=== PATIENT | female | born 1985 | race Caucasian/White ===

== ENCOUNTER → 2022-06-12 15:21 | Outpatient (CLI) | payer OTHER, SELFPAY ==
--- NOTE | 2022-06-12 | DI.US.S_ITS ---
PROCEDURE: US PELVIC COMPLETE INDICATIONS: CHRONIC PELVIC PAIN TECHNIQUE: Real-time scanning was performed of the pelvic organs, with image documentation. Additional endovaginal scanning was necessary due to incomplete visualization of the adnexal and endometrial structures by transabdominal scanning. COMPARISON: None. FINDINGS: Uterus: Uterus is anteverted and normal in size at 3.4 x 5.7 x 8.1 cm. The myometrium is homogeneous. The endometrium measures 6.5 mm combined thickness. Dom a Ovaries: The right ovary measures 2.7 x 1.8 x 3.4 cm, with a calculated ovarian volume of 8.6 cc. The left ovary measures 5.6 x 3.3 x 3.9 cm, with a calculated ovarian volume of 37.4 cc. The ovary on the right has a normal sonographic appearance. On the left there is a complex structure within the left ovary measuring 3.2 x 3.1 x 2.9 cm with increased peripheral vascularity, having a masslike appearance. Less than 12 follicles can be seen in each ovary. No adnexal masses are seen. Other: No pathologic free abdominal or pelvic fluid. IMPRESSION: Masslike appearance at the left ovary where a relatively sharply demarcated structure measuring up to 3.2 x 3.1 x 2.9 cm is present. This could represent a benign or malignant neoplasm and endometrioma also could produce this appearance. Normal right ovary and uterus. Dictated by: Frankie Sood M.D. on 06/12/2022 at 16:26 Approved by: Frankie Sood M.D. on 06/12/2022 at 16:29
== END ==
PROVIDERS: Referring Provider Nurse Practitioner Family; Visit Provider Nurse Practitioner Family
DX: R10.2 Pelvic and perineal pain (principal); N83.9 Noninflammatory disorder of ovary, fallopian tube and broad ligament, unspecified; G89.29 Other chronic pain
CPT/HCPCS: 76830; 76856; 93975

== ENCOUNTER 2022-09-25 08:32 | Day surgery (SDC) | payer OTHER, MEDICAID, SELFPAY ==
[2022-09-16 12:31] VITALS: BMI 24.6
[2022-09-25 08:48] VITALS: BP 109/80; PULSE 66; RESP 16; TEMP 36.6; BMI 24.6
[2022-09-25] MEDS: ACETAMINOPHEN 325 MG TABLET 975 MG PO (09:18)
[2022-09-25] MEDS: FAMOTIDINE 20 MG/2 ML VIAL IV (09:19)
--- NOTE | 2022-09-25 10:35 | PM.PREOP ---
Pre-operative Note COVID-19 COVID-19 status: Not tested Criteria for continued procedure: Non-surgical alternatives not available or appropriate per current SOC Interval Note History & Physical reviewed/Exam performed by Physician: Yes Changes to H&P: No
--- NOTE | 2022-09-25 11:30 | SUR.OPER ---
Lithotomy on padded OR bed, head on pillow, arms padded with gel pads and tucked at sides, Legs secured in padded yellow fins stirrups.
[2022-09-25] MEDS: BUPIVACAINE 0.5% (PF) 20 ML, EPINEPHrine 0.1 MG INJ (11:37)
--- NOTE | 2022-09-25 11:49 | PM.GYNOP.1 ---
Operative Date/Time/Diagnoses Date of procedure: 09/25/22 Time of procedure: 10:55 Pre-op diagnosis: Chronic pelvic pain Dysmenorrhea Left ovarian mass Post-op diagnosis: other (Same as above, large masters window, left hemipelvis) Procedure & Clinicians Procedure: Procedures Operation Date: 09/25/22 10:00 Actual Procedure Side Surgeon p Diagnostic Laparoscopy Steve Rachel MD Indications: Chitra is a 36-year-old 2 para 0 abortus 2 who presented in July 2022 for evaluation of or a long history of pelvic pain/dysmenorrhea, left lower quadrant pain, and a recently noted mass within the left ovary.? Patient experienced menarche at age 12 and has had painful periods ever since their onset.? She would miss days at school and Tylenol or Pamprin or ibuprofen would provide little or no relief.? At age 17 the patient was noted to have what was believed to be ovarian cysts and possibly endometriosis therefore was started on oral contraceptives.? Her pain became somewhat improved but she had severe mood changes in stopped them.? In addition she has migraines with aura as a contraindication her last normal menstrual period was 07/20/2022 and her periods are now regular after having been irregular earlier in her reproductive life.? Unfortunately she is having gradually worsening dysmenorrhea and many year history of deep dyspareunia.? Her dyspareunia is not so much at the time of intercourse but the 2 or 3 days afterwards.? Patient's last Pap is October 2021 and was normal.? She denies any intermenstrual bleeding or history of abnormal Paps.? Patient had a CA 125 performed by her primary care provider after discovering the left-sided ovarian mass and the CA 125 results was normal.? Recent pelvic ultrasound shows: PROCEDURE:? US PELVIC COMPLETE ? INDICATIONS:? CHRONIC PELVIC PAIN ? TECHNIQUE:? Real-time scanning was performed of the pelvic organs, with image documentation.? Additional endovaginal scanning was necessary due to incomplete visualization of the adnexal and endometrial structures by transabdominal scanning.? ? COMPARISON:? None. ? FINDINGS:? ?? Uterus:? Uterus is anteverted and normal in size at 3.4 x 5.7 x 8.1 cm. The myometrium is homogeneous. ? The endometrium measures 6.5 mm combined thickness.? Dom a ? Ovaries:? The right ovary measures 2.7 x 1.8 x 3.4 cm, with a calculated ovarian volume of 8.6 cc. The left ovary measures 5.6 x 3.3 x 3.9 cm, with a calculated ovarian volume of 37.4 cc. The ovary on the right has a normal sonographic appearance.? On the left there is a complex structure within the left ovary measuring 3.2 x 3.1 x 2.9 cm with increased peripheral vascularity, having a masslike appearance.? Less than 12 follicles can be seen in each ovary.? No adnexal masses are seen. ? Other:? No pathologic free abdominal or pelvic fluid. IMPRESSION:? Masslike appearance at the left ovary where a relatively sharply demarcated structure measuring up to 3.2 x 3.1 x 2.9 cm is present.? This could represent a benign or malignant neoplasm and endometrioma also could produce this appearance.? Normal right ovary and uterus. We had an extended discussion regarding potential causes for her symptoms and it would appear most likely that her constellation of symptoms is most likely due to pelvic endometriosis.? It also is possible that the mass seen in her ovary on the left is an endometrioma although she is had chronic left lower quadrant pain since the age of 11.? After discussing all options for further evaluation and/or management of her symptoms, patient wishes to proceed with diagnostic laparoscopy with the plan for excision/fulguration of endometrial implants if noted.? Attempts will be made to remove the mass from her left ovary but she understands that removal of the ovary may be necessary if resection of the mass is not feasible or bleeding develops during the course of its removal.? With full understanding of the above, the patient wishes to proceed in a case request was submitted for diagnostic laparoscopy with excision/fulguration of endometrial implants, left ovarian cystectomy, possible left oophorectomy.? She presents today for her scheduled surgery. ? ? Operative Notes Findings: The uterus is normal in size and mid plane. There are 2 subserosal myomas noted on the anterior surface of the uterine fundus. Both fallopian tubes appeared normal. The right ovary also appears to be normal and there was no evidence of endometriosis or scarring in the right ovarian fossa. The posterior cul-de-sac is free adhesions or endometriotic implants. There is a large, deep, masters window lateral to the uterosacral ligament on the left in the area the left ovarian fossa with likely deep endometrial implants at the base of the masters window. The left ureter was seen superior to the masters window but can not be visualized as it courses under the masters window and endometriotic implants. The left ovary itself is slightly larger than the right and contains a small cystic appearing mass within its substance which was left in-situ due to the need for additional surgery with robotic capability for excision of the large masters window on the left involving the left lateral sidewall, ureter, and hypogastric vessels. Closure Type: primary Specimen(s): none Applied: catheter Estimated blood loss (mL): 25 Blood products transfused: none Procedure in detail: With the patient under satisfactory general endotracheal anesthesia in the modified dorsal lithotomy position, the perineum, vagina, and abdomen were prepped and draped for laparoscopy. A pre-surgical safety time-out was then taken in accordance with [facility] OR protocols. A speculum was placed in the vagina, the anterior lip grasped with a single-tooth tenaculum, and a Zumi manipulator was placed in the uterus after dilation of the endocervical canal. The umbilicus was then infiltrated with 0.5% Marcaine with epinephrine and a 1 cm vertical incision was made in the skin of the inferior umbilicus. A Veress needle was used to insufflate the abdominal cavity with carbon dioxide and once insufflated a 5 mm trocar and sleeve were placed through the umbilical incision. Confirmation of correct placement into the abdominal cavity was confirmed by direct visualization. A 2nd and 3rd 5 mm laparoscopic port was placed in the right and left mid quadrants using a similar technique. The patient was placed in steep Trendelenburg and laparoscopic visualization of the pelvis and abdomen was carried out using a 3 puncture technique with the findings as noted above. Because of the size and depth of the masters window on the left side and it is apparent involvement with the left ureter and other underlying pelvic structures, resection of the masters window was felt to be best performed with robotic capabilities which are not available at this institution. The pelvis and structures therein were documented photographically and the diagnostic laparoscopy terminated by entering of the pneumoperitoneum and removal of the laparoscopy ports. Be laparoscopy port incisions were all closed with 4-0 Monocryl using inverted interrupted stitches and skin glue was applied. Appropriate dressings were applied the patient was awakened from anesthesia. She was then transferred to the PACU for a period of observation and recovery after having tolerated the procedure well. Arrangements will be made to assist in facilitating referral to a gynecologic surgeon with robotic capabilities to be able to resect the masters window in endometriosis that are present in the left hemipelvis. Complications: none Post-operative Condition: stable Disposition: PACU Plan for aftercare: Routine postop care with plans for referral to a center capable of robotic resection of masters window, left pelvic sidewall. Findings reviewed at length with the patient prior to her discharge and she understands both the reason why excision was not performed but standard laparoscopic techniques as well as the need for excision for relief pain she is been experiencing for at least the last 20 years.
[2022-09-25 11:55] VITALS: BP 118/70; PULSE 89; RESP 20; TEMP 36.1; O2SAT 99
[2022-09-25 12:01] VITALS: BP 121/71; PULSE 84; RESP 21; O2SAT 100
[2022-09-25 12:06] VITALS: BP 120/74; PULSE 82; RESP 20; O2SAT 100
[2022-09-25 12:22] VITALS: BP 130/83; PULSE 84; RESP 10; O2SAT 99
[2022-09-25 12:23] VITALS: BP 130/83; PULSE 81; RESP 12; O2SAT 100
--- NOTE | 2022-09-25 12:41 | SUR.PHASEII ---
upset surgery was not able to be completed as she had thought it would be. support provided, wants to get dressed and go home.
[2022-09-25] MEDS: OXYCODONE IR 5 MG TABLET PO (13:04)
== END 2022-09-25 13:17 | disposition home or self-care (01) ==
PROVIDERS: Referring Provider Obstetrics & Gynecology; Visit Provider Obstetrics & Gynecology
PROC: 0U5B4ZZ Destruction of Endometrium, Percutaneous Endoscopic Approach (ICD-10-PCS; CPT 58662; principal; 2022-09-25 10:00)
DX: R10.2 Pelvic and perineal pain (principal); N94.6 Dysmenorrhea, unspecified; D25.2 Subserosal leiomyoma of uterus; N83.8 Other noninflammatory disorders of ovary, fallopian tube and broad ligament
CPT/HCPCS: 49320; J0171; J1100; J2405; J2704; J3010